=== PATIENT | female | born 1975 | race African-American/Black ===

== ENCOUNTER 2017-09-14 06:38 | Emergency (ER) | payer MEDICAID ==
[~2017-09-14] VITALS: Ht 162.6 cm; Wt 83.0 kg
[~2017-09-14 06:38] MED LIST: ALBUTEROL
[2017-09-14] MEDS ORDERED: IBUPROFEN 600MG TABLET PO ONE (07:45)
[2017-09-14 08:37] LABS: BASOPHILS % 1.2 % (0.0-2.0); EOSINOPHILS % 2.7 % (0.0-5.0); HEMATOCRIT. 38.2 % (36.0-48.0); LYMPHOCYTES % 46.6 % (20.0-50.0); MEAN CORPUSCULAR HEMOGLOBIN 30.6 pg (28.0-32.0); MEAN CORPUSCULAR VOLUME 89.8 fL (81.0-99.0); MONOCYTES % 7.4 % (2.0-8.0); NEUTROPHILS % 42.1 % (40.0-76.0); PLATELET 244 x1000/uL (130-400); RED BLOOD CELL COUNT 4.26 mill/uL (4.2-5.4); RED CELL DISTRIBUTION WIDTH 13.5 % (11.6-14.6)
[2017-09-14 08:43] LABS: CHLORIDE 108 mEq/L (98-107)
[2017-09-14 08:45] LABS: INR 1.1; PARTIAL THROMBOPLASTIN TIME 27.5 sec (23.4-31.0)
[2017-09-14 14:31] VITALS: BP 129/80
[2017-09-14] MEDS ORDERED: IOHEXOL-350 100 ML BOTTLE ONE (15:00)
== END 2017-09-14 14:32 | disposition home or self-care (01) ==
LOC: ER 06:38
DX: R07.9 Chest pain, unspecified (principal); I44.0 Atrioventricular block, first degree; E11.9 Type 2 diabetes mellitus without complications; I10 Essential (primary) hypertension
CPT/HCPCS: 36415; 71045; 71275; 80053; 81025; 83690; 84484; 85025; 85379; 85610; 85730; 93005; 93970; 99285; Q9967; Z7610

== ENCOUNTER 2020-10-02 05:23 | Emergency (ER) | payer MEDICAID, OTHER ==
[~2020-10-02] VITALS: Ht 162.6 cm; Wt 93.0 kg
[2020-10-02] MEDS ORDERED: KETOROLAC 30MG/ML VIAL IV STA (05:51)
[2020-10-02] MEDS ORDERED: SODIUM CHLORIDE 0.9% 1,000 ML IV ONE (06:00)
[2020-10-02] MEDS ORDERED: METOCLOPRAMIDE HCL 10MG/2ML VIAL IV ONE (06:00)
[2020-10-02] MEDS ORDERED: METO-293 PO (07:54)
[2020-10-02] MEDS ORDERED: TOPUD PO (07:54)
[2020-10-02 08:00] VITALS: BP 148/89
== END 2020-10-02 08:05 | disposition home or self-care (01) ==
LOC: ER 05:23
DX: R51.9 Headache, unspecified (principal); I10 Essential (primary) hypertension; F17.210 Nicotine dependence, cigarettes, uncomplicated; F12.10 Cannabis abuse, uncomplicated
CPT/HCPCS: 96361; 96374; 96375; 99284; J1885; J2765; J7030

== ENCOUNTER 2022-12-05 16:26 | Inpatient (IN) | payer OTHER ==
[~2022-12-05] VITALS: Ht 162.6 cm; Wt 893.1 kg
[~2022-12-05 16:26] MED LIST changes: +METO-293 PO; +TOPUD PO
[2022-12-05] MEDS ORDERED: IBUPROFEN 600MG TABLET PO ONE (18:30)
[2022-12-05 18:55] LABS: BASOPHILS % 0.5 % (0.0-2.0); EOSINOPHILS % 2.6 % (0.0-5.0); HEMATOCRIT. 40.8 % (36.0-48.0); HEMOGLOBIN. 13.7 g/dL (12.0-16.0); LYMPHOCYTES % 47.5 % (20.0-50.0); MEAN CORPUSCULAR HEMOGLOBIN 29.5 pg (28.0-32.0); MEAN CORPUSCULAR HGB CONC 33.7 g/dL (31.0-37.0); MEAN CORPUSCULAR VOLUME 87.5 fL (81.0-99.0); MEAN PLATELET VOLUME 7.5 fl (7.4-10.4); MONOCYTES % 8.8 % (2.0-8.0); NEUTROPHILS % 40.6 % (40.0-76.0); PLATELET 295 x1000/uL (130-400); RED BLOOD CELL COUNT 4.66 mill/uL (4.2-5.4); RED CELL DISTRIBUTION WIDTH 13.5 % (11.6-14.6); WHITE BLOOD COUNT 5.7 x1000/uL (4.5-11.0)
[2022-12-05 19:03] LABS: CHLORIDE 110 mEq/L (98-107); INDEX HEMOLYSI 1 (1-3); INDEX ICTERIC 1 (1-4); INDEX LIPEMIC 1 (1-3); POTASSIUM 3.6 mEq/L (3.5-5.1); SODIUM 139 mEq/L (136-145)
[2022-12-05 19:11] LABS: ALANINE AMINOTRANSFERASE 18 IU/L (13-61); ALBUMIN 3.6 g/dL (3.4-5.0); ASPARTATE AMINOTRANSFERASE 15 IU/L (15-37); BILIRUBIN TOTAL 0.2 mg/dL (0.1-1.0); CALCIUM 8.2 mg/dL (8.5-10.1); CARBON DIOXIDE 28 mEq/L (21-32); CREATININE 0.9 mg/dL (0.6-1.3); GLUCOSE 89 mg/dL (70-105); PROTEIN TOTAL 7.5 g/dL (6.0-8.3); UREA NITROGEN BLOOD 7 mg/dL (7-21)
[2022-12-05 19:12] LABS: TROPONIN I HIGH SENSITIVITY 13 ng/L (<54)
[2022-12-05] MEDS ORDERED: HYDROCODONE/ACETAMINOPHEN 5/325MG TABLET PO ONE (23:45)
[2022-12-06 04:15] VITALS: BP 137/74; PULSE 62; RESP 18; TEMP 97.7
[2022-12-06 08:00] VITALS: BP 129/76; PULSE 62; TEMP 97.9
[2022-12-06] MEDS: HYDROCODONE/ACETAMINOPHEN 10/325MG TABLET PO PRN ×2 (10:59→17:04)
[2022-12-06] MEDS ORDERED: ONDANSETRON HCL 4MG/2ML INJ IV PRN (11:00)
[2022-12-06] MEDS ORDERED: ACETAMINOPHEN 325MG TABLET PO PRN (11:00)
[2022-12-06] MEDS ORDERED: CLONIDINE 0.1MG TABLET PO PRN (11:00)
[2022-12-06 12:00] VITALS: BP 141/91; PULSE 80; RESP 16; TEMP 98.2
[2022-12-06] MEDS ORDERED: NALOXONE HCL 0.4MG/ML VIAL IV PRN (13:30)
[2022-12-06 16:00] VITALS: BP 155/86; PULSE 71; RESP 15; TEMP 98.7
[2022-12-06] MEDS: AMLODIPINE 2.5MG TABLET PO SCH (17:03)
[2022-12-06 20:04] VITALS: BP 150/79; PULSE 68; RESP 13; TEMP 98
[2022-12-06] MEDS: ENOXAPARIN 30MG/0.3ML SYR SUBCUT SCH (21:12)
[2022-12-06 23:59] VITALS: BP 139/65; PULSE 66; RESP 28; TEMP 98.3
[2022-12-07 04:04] VITALS: BP 148/75; PULSE 61; RESP 8; TEMP 97.9
[2022-12-07 06:43] LABS: BASOPHILS % 0.4 % (0.0-2.0); DIFFERENTIAL COMMENT 0; HEMATOCRIT. 39.3 % (36.0-48.0); HEMOGLOBIN. 13.6 g/dL (12.0-16.0); LYMPHOCYTES % 54.3 % (20.0-50.0); MEAN CORPUSCULAR HEMOGLOBIN 30.1 pg (28.0-32.0); MEAN CORPUSCULAR HGB CONC 34.6 g/dL (31.0-37.0); MEAN PLATELET VOLUME 8.3 fl (7.4-10.4); MONOCYTES % 10.4 % (2.0-8.0); NEUTROPHILS % 31.9 % (40.0-76.0); PLATELET 247 x1000/uL (130-400); RED BLOOD CELL COUNT 4.52 mill/uL (4.2-5.4); RED CELL DISTRIBUTION WIDTH 13.8 % (11.6-14.6); WHITE BLOOD COUNT 3.6 x1000/uL (4.5-11.0)
[2022-12-07 06:56] LABS: CHLORIDE 110 mEq/L (98-107); INDEX HEMOLYSI 1 (1-3); INDEX ICTERIC 1 (1-4); INDEX LIPEMIC 1 (1-3); POTASSIUM 3.4 mEq/L (3.5-5.1); SODIUM 141 mEq/L (136-145)
[2022-12-07 07:08] LABS: CALCIUM 8.4 mg/dL (8.5-10.1); CARBON DIOXIDE 25 mEq/L (21-32); CHOLESTEROL 135 mg/dL (<200); CREATININE 0.7 mg/dL (0.6-1.3); GLUCOSE 83 mg/dL (70-105); HDL CHOLESTEROL 40 mg/dL (40-59); LDL CHOLESTEROL 92 mg/dL (5-100); TRIGLYCERIDE 84 mg/dL (0-150); TROPONIN I HIGH SENSITIVITY 13 ng/L (<54); UREA NITROGEN BLOOD 8 mg/dL (7-21)
[2022-12-07 08:00] VITALS: BP 153/87; PULSE 61; RESP 15; TEMP 97.5
[2022-12-07] MEDS: AMLODIPINE 2.5MG TABLET PO SCH (08:41)
[2022-12-07] MEDS: HYDROCODONE/ACETAMINOPHEN 10/325MG TABLET PO PRN (08:43)
[2022-12-07] MEDS: ENOXAPARIN 30MG/0.3ML SYR SUBCUT SCH (08:44)
[2022-12-07] MEDS ORDERED: ASPIRIN 81MG EC TABLET PO SCH (09:00)
[2022-12-07 12:00] VITALS: BP 134/74; PULSE 71; RESP 18; TEMP 98
[2022-12-07] MEDS ORDERED: POTASSIUM CHLORIDE 20MEQ/PACKET PO NR (12:15)
[2022-12-07] MEDS ORDERED: ASPI-1406 PO (14:02)
[2022-12-07] MEDS ORDERED: AMLO5TAB88 PO (14:02)
[2022-12-07 14:17] VITALS: BP 134/77; PULSE 66; TEMP 97.5; O2SAT 98
[2022-12-07] MEDS ORDERED: AMLODIPINE 5MG TABLET PO SCH (17:00)
== END 2022-12-07 18:00 | disposition home or self-care (01) | DRG 203 ==
LOC: ER 17:09 → EDBEDREQTM 23:38 → EDBEDREQ 23:38 → 3WST 12-06 04:55
PROVIDERS: ADMIT Internal Medicine; ATTEND Internal Medicine
DX: M94.0 Chondrocostal junction syndrome [Tietze] (principal); I10 Essential (primary) hypertension; R07.89 Other chest pain; Z79.82 Long term (current) use of aspirin
CPT/HCPCS: 36415; 71045; 80048; 80053; 80061; 84484; 85025; 93005; 93306; 99285; J1650